=== PATIENT | male | born 2000 | race Two or more races ===

== ENCOUNTER 2018-02-03 13:53 | Outpatient (CLI) | payer OTHER | END 2018-02-03 13:58 | disposition home or self-care (01) | LOC: RAD 13:53 | DX: S82.61XA Displaced fracture of lateral malleolus of right fibula, initial encounter for closed fracture (principal) ==

== ENCOUNTER 2020-11-19 12:25 | Emergency (ER) | payer OTHER ==
[~2020-11-19] VITALS: Ht 162.6 cm; Wt 70.3 kg
[2020-11-19] MEDS ORDERED: DICLOFENAC POTA50 MG PO (14:30)
== END 2020-11-19 14:35 | disposition home or self-care (01) ==
LOC: ER 12:25
DX: S43.491A Other sprain of right shoulder joint, initial encounter (principal); M25.511 Pain in right shoulder; X50.0XXA Overexertion from strenuous movement or load, initial encounter; Y93.89 Activity, other specified; Y92.018 Other place in single-family (private) house as the place of occurrence of the external cause; Y99.8 Other external cause status